=== PATIENT | female | born 1985 | race Caucasian/White ===

== ENCOUNTER 2017-01-08 15:03 | Emergency (ER) | payer OTHER ==
--- OUTSIDE RECORDS SUMMARY | 2017-01-08 15:37 | XMS REPORT | Continuity of Care Document ---
:1985 Author Organization [facility] ([facility]) Address [address] [place] [address] Phone [phone] Care Team Providers Name Role Phone Elsa Paul Primary Care Provider [phone] Source Comments This disclosure is being made pursuant to the Care Everywhere program, applicable federal and state laws, and may not contain all informaitonavailable regarding this patient.[facility] ([facility]) Active Allergies and Adverse Reactions Allergen Noted Date Severity Reactions Comments Erythromycin 10/29/2012 Urticaria (Hives) Penicillins 10/29/2012 Urticaria (Hives) Current Medications Prescription Sig. Disp. Refills Start Date End Date Status albuterol 90 Use 2 Puffs by 1 Inhaler 0 08/01/2014 Active mcg/Actuation inhalation every 6 inhaler hours as needed. Indications: BRONCHOSPASM PREVENTION pantoprazole 40 mg Take 1 tablet (40 60 tablet 1 08/03/2015 Active EC tablet mg total) by mouth 2 times daily DULoxetine 60 mg XR Take 1 capsule (60 30 capsule 2 08/31/2015 Active capsule mg total) by mouth daily traMADol 50 mg Take 1 tablet (50 40 tablet 0 05/03/2016 Active tablet mg total) by mouth 4 times daily as needed. Active Problems Problem Noted Date Chronic pain 10/03/2015 Vitamin D deficiency 10/03/2015 Tobacco abuse 10/03/2015 Tension headache 08/14/2015 Anxiety 08/14/2015 Abdominal pain, epigastric 04/28/2015 Chest pain, unspecified 04/28/2015 Chest pain, rule out acute myocardial infarction 04/28/2015 Unspecified constipation 04/25/2015 Abdominal pain, left upper quadrant 04/25/2015 Nausea alone 04/25/2015 High body mass index 08/01/2014 Bronchitis 08/01/2014 Productive cough 08/01/2014 Well woman exam with routine gynecological exam 06/10/2013 Laceration of thumb 10/31/2012 Elevated LFTs 10/29/2012 Obesity 10/29/2012 Immunizations Name Dates Previously Given Next Due Tdap 10/31/2012 Social History Tobacco Use Types Packs/Day Years Used Date Current Every Day Smoker Cigarettes 0.5 8 Smokeless Tobacco: Never Used Tobacco Cessation:Ready to Quit: Yes; Counseling Given: No Comments: Alcohol Use Drinks/Week oz/Week Comments Yes 2 Cans of beer 1.2 rarely Last Filed Vital Signs Vital Sign Reading Time Taken Blood Pressure 126/86 05/03/2016 2:45 PM CDT Pulse 104 05/03/2016 2:45 PM CDT Temperature 37.6 C (99.7 F) 05/03/2016 2:45 PM CDT Respiratory Rate 18 05/03/2016 2:45 PM CDT Height 1.676 m (5' 6") 04/28/2015 12:50 PM CDT Weight 107.593 kg (237 lb 3.2 oz) 05/03/2016 2:45 PM CDT Body Mass Index 38.3 05/03/2016 2:45 PM CDT Oxygen Saturation 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
[2017-01-08] MEDS ORDERED: KETOROLAC TROMETHAMINE 60 MG/2 ML VIAL IM ONE ×2 (15:42)
[2017-01-08 15:44] LABS: Urine Bilirubin Negative (NEGATIVE); Urine Blood Negative /ul (NEGATIVE); Urine Ketone Negative (NEGATIVE); Urine Nitrite Negative (NEGATIVE); Urine Protein Negative (NEGATIVE); Urine Specific Gravity 1.015 SP.GR. (1.005-1.010); Urine Urobilinogen Normal (NORMAL)
--- NOTE | 2017-01-08 15:47 | ERNOTE ---
Back Pain ER HPI Date of Service: 01/08/17 Presenting Symptoms: injury/pain to back Time Seen by Provider: 01/08/17 15:32 Source: patient, RN notes reviewed Exam Limitations: no limitations Immunizations: IMMUNIZATION HX Immunizations Up to Date Yes History of Influenza Vaccine No Hx Pneumococcal Vaccination No Allergies/Adverse Reactions: Allergies erythromycin base Allergy (Verified 01/08/17 15:30) Penicillins Allergy (Verified 01/08/17 15:30) Home Medications: HOME MEDICATIONS Albuterol Sulfate [Proair Respiclick] 2 puff IH Q4H PRN 05/05/16 [Last Taken Unknown] Cyclobenzaprine HCl [Flexeril] 10 mg PO TID PRN #30 tab 01/08/17 [Last Taken Unknown] Ibuprofen [Motrin] 600 mg PO Q6H PRN #40 tab 01/08/17 [Last Taken Unknown] Narrative: 31 y/o female to ED for right flank pain that began approximately a month ago, but has become severe for 2 days. She has a history of pyelonephritis and is concerned that she may have "kidney infection." She denies any urinary symptoms. She also reports nausea. She has not taken anything for pain today. Timing: Reports: getting worse Quality/Severity: Reports: severe Location of pain: Reports: mid back, radiating to rt thigh/leg Activities at Onset: Reports: none Recent Injury?: Reports: no Modifying Factors - (Improves): Reports: other - rest Modifying Factors - (Worsens): Reports: other - activity Associated Symptoms: Reports: difficulty walking. Denies: fever/chills, sweating, constipation/incontinence, problems urinating, numbess/weakness in legs Prior Treament: Denies: recently seen Review of Systems - Review of Systems Constitutional: Absent: fever, chills EYE: Present: no symptoms reported ENT: Present: no symptoms reported Respiratory: Absent: shortness of breath, cough Cardiology: Absent: chest pain, syncope Gastrointestinal/Abdominal: Present: nausea. Absent: vomiting, diarrhea, constipation Genitourinary: Absent: frequency, dysuria, hematuria Musculoskeletal: Present: back pain. Absent: joint pain Skin: Absent: rash, lesions, lumps Neurological: Absent: dizziness/light-headedness, weakness, numbness, tingling Endocrine: Present: no symptoms reported Hematologic/Lymphatic: Present: no symptoms reported Psych: Present: no symptoms reported - Patient's Past Medical History Patient History - Medical: Depression Patient History - Cardiac/Respiratory: No pertinent hx Patient History - Cancer: No Hx of Cancer Patient History - Surgical Procedures: Cholecystectomy, Ear Tubes, Tubal Ligation, T & A Patient History - Other: None LMP (Calendar): 01/03/17 - Family History Father Family History - Medical: Diabetes Type 2 Family History - Cardiac/Respiratory: Hypertension Mother Family History - Medical: No pertinent hx Family History - Cardiac/Respiratory: No pertinent hx - Social History Living Situations: significant other Abuse History: No History of abuse Psych History: Hx of Depression Does anyone smoke in the home?: Yes Smoking Status: Current every day smoker Cigarettes Packs Per Day: 0.5 Have you smoked in the past 12 months: Yes Alcohol Use: none Drug Use: none - Immunizations Immunizations Up to Date: Yes Hx Pneumococcal Vaccination: No History of Influenza Vaccine: No Physical Exam - Physical Exam General Appearance: Present: wd/wn, alert, mild distress, obese Eye Exam: Normal inspection: bilateral Neck: Present: normal inspection, nontender, supple Respiratory: Present: no respiratory distress, normal breath sounds, no accessory muscle use, lungs clear Cardiovascular/Chest: Present: regular rate, rhythm, no murmur, normal peripheral pulses Gastrointestinal/Abdominal: Present: normal bowel sounds, soft, tenderness - suprapubic, RLQ, distended - obese Back Exam: Present: no vertebral tenderness, CVA tenderness (R), decreased range of motion. Absent: CVA tenderness (L) Extremity Exam: Present: normal inspection, no edema, normal range of motion Neurological Exam: Present: alert, oriented, normal mood/affect, no motor/ sensory deficits Skin Exam: Present: normal color, warm/dry ED Progress - Results and Orders Patient's Lab Results:: I have reviewed the patient's lab results. - Vital Signs Patient's Vital Signs:: I have reviewed the patient's vital signs. Vital Signs: Vital Signs 01/08/17 15:27 Pulse Rate 92 Respiratory 14 Rate Blood Pressure 150/93 O2 Sat by Pulse 97 Oximetry - X-Ray X-Ray #1 X-Ray: lumbosacral Interpretation: Reviewed by me X-ray Comments: TECHNIQUE: AP, lateral, coned-down lateral, bilateral oblique views of the lumbar spine were obtained. 5 images obtained. COMPARISON: None available. FINDINGS: Lumbar Complete W/ Obliques *: Five nonrib-bearing lumbar vertebral bodies are noted. Pedicles are intact and symmetric. Interpediculate distances are normal. Lateral view demonstrates no compression deformity. Normal alignment is seen. Mild L4-L5 disc space narrowing suggested. Mild to moderate L5-S1 disc space narrowing suggested. Mild facet joint degenerative changes of L4-L5 and L5-S1 levels noted. Oblique images demonstrate no definite signs of spondylolysis. IMPRESSION: 1. No acute osseous finding. 2. L4-L5 and L5-S1 degenerative disc disease, with facet joint degenerative arthropathy suggested. Electronically signed by Jeremias Colin M.D.. - Progress/Reassessment Chief Complaint: Back Pain Progress:: Unchanged Plan - Plan Plan: No change in pain with Toradol. UA does not indicate infection or renal calculi. No remarkable xray findings corresponding with the area in which the patient is having pain, however there is a fair amount of retained stool in the right side of the abdomen visible on the lumbar film. Discussed further evaluation with labs and abdominal films, but patient is agreeable to trying a laxative to see if this will improve the pain. To f/u if pain persists despite having results with Mag Citrate. Departure Clinical Impression: Right flank pain - Departure Disposition: Home Follow Up Needed Condition: Stable Instructions: Flank Pain, [id number], Form - Excuse from Work, School, or Physical Activity Additional Instructions: Take entire bottle of magnesium citrate when you get home Return if symptoms persist Prescriptions: Cyclobenzaprine HCl [Flexeril] 10 mg PO TID PRN #30 tab PRN Reason: MUSCLE SPASMS Ibuprofen [Motrin] 600 mg PO Q6H PRN #40 tab PRN Reason: Pain
[2017-01-08 15:57] LABS: Urine Appearance Slightly Cloudy; Urine Bacteria TRACE; Urine Color Yellow; Urine Mucus Few - 1+; Urine RBC None Seen /hpf (0-5); Urine WBC None Seen /hpf (0-5)
[2017-01-08 16:27] VITALS: BP 147/90
[2017-01-08] MEDS ORDERED: MAGNESIUM CITRATE 300 ML BTL PO ONE (16:55)
[2017-01-08] MEDS ORDERED: MAGNESIUM CITRATE 300 ML BTL ONE (16:57)
== END 2017-01-08 17:02 | disposition home or self-care (01) ==
LOC: ER 15:03
DX: R10.9 Unspecified abdominal pain (principal); F17.210 Nicotine dependence, cigarettes, uncomplicated

== ENCOUNTER 2017-02-19 10:57 | Emergency (ER) | payer OTHER ==
--- OUTSIDE RECORDS SUMMARY | 2017-02-19 11:32 | XMS REPORT | Continuity of Care Document ---
:1985 Author Organization [facility] ([facility]) Address [address] [place] [address] Phone [phone] Care Team Providers Name Role Phone Elsa Paul Primary Care Provider [phone] Source Comments This disclosure is being made pursuant to the Care Everywhere program, applicable federal and state laws, and may not contain all informaitonavailable regarding this patient.[facility] ([facility]) Active Allergies and Adverse Reactions Allergen [...] CDT Oxygen Saturation 99% 10/02/2015 8:39 AM CARE ADVOCATE Plan of Care Health Maintenance Due Date [...]
[2017-02-19 11:37] LABS: Hematocrit 38.2 % (37.0-47.0); Hemoglobin 12.7 gm/dL (12.5-16.0); Mean Cell Volume 82.9 fl (78-100); Mean Corpuscular Hemoglobin 27.5 pg (27-31); Mean Corpuscular Hgb Conc 33.2 g/dl (32-36); Mean Platelet Volume 10.1 fl (6.0-9.5); Neutrophil # 4.9 K/mm3 (1.3-6.0); Neutrophil % 62.8 % (42-75.0); Platelet Count 248 K/mm3 (150-450); Red Blood Count 4.61 M/mm3 (4.2-5.4); Red Cell Distribution Width 13.2 % (11.5-14.0); White Blood Count 7.8 K/mm3 (4.0-10.5)
--- NOTE | 2017-02-19 11:49 | ERNOTE ---
Medical Problem HPI - General Chief Complaint: Drug Overdose Time Seen by Provider: 02/19/17 11:23 Source: patient, family Exam Limitations: clinical condition - Immun/Allergies/Home Medications Immunizations: IMMUNIZATION HX Immunizations Up to Date Yes History of Influenza Vaccine No Hx Pneumococcal Vaccination No Allergies/Adverse Reactions: Allergies erythromycin base Allergy (Verified 01/08/17 15:30) Penicillins Allergy (Verified 01/08/17 15:30) Home Medications: HOME MEDICATIONS NK [No Home Medication] 02/19/17 [Last Taken Unknown] - History of Present History Narrative: Patient has been under considerable stress in her home life with the father of her children putting enormous pressures on her telling her that she needs to kill herself. He has already suffers from depression and apparently these life stressors are getting to be too much for her and today she decided to take some extra pills any attempt to end her life and she said "to stop the pain". Timing: constant Severity: moderate Review of Systems - Review of Systems Constitutional: Present: See HPI, malaise EYE: Present: no symptoms reported ENT: Present: no symptoms reported Respiratory: Present: no symptoms reported Cardiology: Present: no symptoms reported Gastrointestinal/Abdominal: Present: no symptoms reported Genitourinary: Present: no symptoms reported Musculoskeletal: Present: no symptoms reported Skin: Present: no symptoms reported Neurological: Present: depressed, emotional problems Endocrine: Present: no symptoms reported Hematologic/Lymphatic: Present: no symptoms reported Psych: Present: depressed, emotional problems - Patient's Past Medical History Patient History - Medical: Depression Patient History - Cardiac/Respiratory: No pertinent hx Patient History - Cancer: No Hx of Cancer Patient History - Surgical Procedures: Cholecystectomy, Ear Tubes, Tubal Ligation, T & A Patient History - Other: None LMP (Calendar): 01/03/17 - Family History Father Family History - Medical: Diabetes Type 2 Family History - Cardiac/Respiratory: Hypertension Mother Family History - Medical: No pertinent hx Family History - Cardiac/Respiratory: No pertinent hx - Social History Living Situations: significant other Abuse History: No History of abuse Psych History: Hx of Depression Does anyone smoke in the home?: Yes Smoking Status: Current every day smoker Have you smoked in the past 12 months: Yes Alcohol Use: none Drug Use: none - Immunizations Immunizations Up to Date: Yes Hx Pneumococcal Vaccination: No History of Influenza Vaccine: No Physical Exam - Physical Exam General Appearance: Present: wd/wn, alert, moderate distress, other - sleepy, but arousable Eye Exam: Normal inspection: bilateral, PERRL: bilateral Ears, Nose, Throat: Present: normal ENT inspection, H, normal pharynx Neck: Present: normal inspection, nontender Respiratory: Present: no respiratory distress, normal breath sounds, no accessory muscle use, chest nontender, lungs clear Cardiovascular/Chest: Present: regular rate, rhythm, no murmur, normal peripheral pulses Gastrointestinal/Abdominal: Present: normal bowel sounds, nontender, nondistended, soft, no organomegaly Rectal Exam: Present: deferred Back Exam: Present: normal inspection, normal range of motion Extremity Exam: Present: normal inspection, non-tender, no edema, normal range of motion Neurological Exam: Present: alert, oriented, normal mood/affect Skin Exam: Present: normal color, warm/dry Lymphatic Exam: Present: no adenopathy ED Progress - Results and Orders Patient's Lab Results:: I have reviewed the patient's lab results. - Vital Signs Patient's Vital Signs:: I have reviewed the patient's vital signs. Vital Signs: Vital Signs 02/19/17 02/19/17 11:02 11:22 Temperature 36.3 C L Pulse Rate 115 H 96 Respiratory 14 16 Rate Blood Pressure 139/96 116/70 O2 Sat by Pulse 100 98 Oximetry - Progress/Reassessment Chief Complaint: Drug Overdose Progress:: Improved Progress Note-Subjective: 02/19/17 15:56 Pt adamently denies to both me and to Kristi Maravilla that she is suicidal. She wants to go home and will F/U with her FP and Kristi Maravilla as needed. Plan - Plan Plan: Counseling was offered to the patient and we discussed the amphetamine usage as being a problem in regards to her mental health. She appears to understand, although I suspect, as does Kristi Maravilla, that she is a borderline personality disorder patient. Departure - Departure Clinical Impression: Borderline personality disorder, Acute stress reaction Disposition: Home self-care Condition: Good Instructions: Borderline Personality Disorder
[2017-02-19 11:50] LABS: ALT 79 U/L (19-67); AST 34 U/L (0-48); Albumin * 3.5 gm/dl (3.4-5.0); Alkaline Phosphatase * 113 U/L (50-170); Anion Gap 14.2 mmol/L (6.8-13.8); BUN/Creatinine Ratio 11.8 (9.0-21.6); Bilirubin, Total 0.3 mg/dL (0.0-1.1); Blood Urea Nitrogen 8 mg/dL (3-23); Ca. Corrected For Albumin 8.5 mg/dL (8.4-10.2); Calcium * 8.4 mg/dL (7.9-10.9); Chloride 107 mmol/L (97-106); Glucose * 139 mg/dL (70-110); Potassium 3.2 mmol/L (3.4-4.6); Salicylate 4.2 mg/dL (2.8-20.0); Sodium 142 mmol/L (132-142); Total Protein 7.4 gm/dL (6.2-8.2)
[2017-02-19 12:02] LABS: Urine Bilirubin Negative (NEGATIVE); Urine Blood Negative /ul (NEGATIVE); Urine Ketone Negative (NEGATIVE); Urine Nitrite Negative (NEGATIVE); Urine Protein Negative (NEGATIVE); Urine Urobilinogen Normal (NORMAL)
[2017-02-19 12:11] LABS: Cocaine Ur Negative (NEGATIVE); Urine Barbiturate Negative (NEGATIVE); Urine Benzodiazepines Negative (NEGATIVE); Urine Opiates Negative (NEGATIVE); Urine PCP Negative (NEGATIVE); Urine THC Negative (NEGATIVE)
[2017-02-19 12:20] LABS: Urine Appearance Clear; Urine Bacteria 1+; Urine Color Yellow; Urine RBC 0-5 /hpf (0-5); Urine WBC None Seen /hpf (0-5)
[2017-02-19 15:46] VITALS: BP 118/76
== END 2017-02-19 16:13 | disposition home or self-care (01) ==
LOC: ER 10:57
DX: F60.3 Borderline personality disorder (principal); F43.0 Acute stress reaction; F17.210 Nicotine dependence, cigarettes, uncomplicated
CPT/HCPCS: 36415; 80053; 80307; 81001; 85025; 87086; 93005; 94760; 99283; G0480; G0481

== ENCOUNTER 2017-11-05 20:18 | Emergency (ER) | payer OTHER ==
[2017-11-05] MEDS ORDERED: KETOROLAC TROMETHAMINE 60 MG/2 ML VIAL IM ONE ×2 (20:28→20:30)
[2017-11-05 20:36] LABS: Urine Bilirubin Negative (NEGATIVE); Urine Blood Negative /ul (NEGATIVE); Urine Ketone Negative (NEGATIVE); Urine Nitrite Negative (NEGATIVE); Urine Protein Negative (NEGATIVE); Urine Specific Gravity <=1.005 SP.GR. (1.005-1.010); Urine Urobilinogen Normal (NORMAL)
--- NOTE | 2017-11-05 20:43 | ERNOTE ---
Back Pain ER HPI Date of Service: 11/05/17 Presenting Symptoms: hx chronic back pain Time Seen by Provider: 11/05/17 20:19 Source: patient Exam Limitations: no limitations Immunizations: IMMUNIZATION HX Immunizations Up to Date Yes History of Influenza Vaccine Yes Hx Pneumococcal Vaccination Yes Allergies/Adverse Reactions: Allergies erythromycin base Allergy (Verified 11/05/17 20:26) Penicillins Allergy (Verified 11/05/17 20:26) Home Medications: HOME MEDICATIONS Cyclobenzaprine HCl [Flexeril] 10 mg PO TID PRN #30 tab 11/05/17 [Last Taken Unknown] Naproxen [Naprosyn] 500 mg PO BID PRN #60 tab 11/05/17 [Last Taken Unknown] Polyethylene Glycol 3350 [Miralax] 17 gm PO DAILY #1 bottle 11/05/17 [Last Taken Unknown] Narrative: Pt. comes in with c/o low back pain for a week. Pt. denies nay injury or precipitating factors and states taht she has had problems with her back as well as her kidneys in the past. Pt. states that she has not urinated in three days. Pt. denies any NVD, fever, SOB, CP, illicit drug use, smoking, or drinking. Pt. denies any alleviating or aggravating factors, despite taking Tylenol for pain. Timing: Reports: getting worse Quality/Severity: Reports: severe, sharpness Location of pain: Reports: lower back Activities at Onset: Reports: none Recent Injury?: Reports: no Possible Precipitating Factor: Reports: none Modifying Factors - (Improves): Reports: nothing Modifying Factors - (Worsens): Reports: supine position, upright position, movement to right, movement to left, movement flexion, cough/deep breaths Associated Symptoms: Reports: problems urinating Prior Treament: Reports: similar symptoms before. Denies: recently seen, treated by physician, recently hospitalized, currently on antibiotics Review of Systems - Review of Systems Constitutional: Present: no symptoms reported. Absent: fever, chills, weakness , fatigue, malaise EYE: Present: no symptoms reported ENT: Present: no symptoms reported Respiratory: Present: no symptoms reported. Absent: shortness of breath, cough , wheezing Cardiology: Present: no symptoms reported. Absent: chest pain, palpitations, edema Gastrointestinal/Abdominal: Present: no symptoms reported Genitourinary: Present: decreased urinary output Musculoskeletal: Present: back pain. Absent: neck pain, joint pain Skin: Present: no symptoms reported. Absent: rash, change in color Neurological: Present: no symptoms reported. Absent: headache, dizziness/light- headedness, weakness, numbness, tingling All Other Systems: All systems neg except as marked - Patient's Past Medical History Patient History - Medical: Depression, Fibromyalgia Patient History - Cardiac/Respiratory: No pertinent hx Patient History - Cancer: No Hx of Cancer Patient History - Surgical Procedures: Cholecystectomy, Ear Tubes, Tubal Ligation, T & A Patient History - Other: None LMP (females 10-50): tubal ligation - Family History Father Family History - Medical: Diabetes Type 2 Family History - Cardiac/Respiratory: Hypertension Mother Family History - Medical: No pertinent hx Family History - Cardiac/Respiratory: No pertinent hx - Social History Living Situations: home Abuse History: No History of abuse Psych History: Hx of Depression Smoking Status: Never smoker Alcohol Use: none Drug Use: none - Immunizations Immunizations Up to Date: Yes Hx Pneumococcal Vaccination: Yes History of Influenza Vaccine: Yes Physical Exam - Physical Exam General Appearance: Present: wd/wn, alert, moderate distress Head Exam: Present: normal inspection, no evidence of injury, no tenderness w palpation Eye Exam: Abnormal EOM: bilateral - will track when asked to focus but does not when at rest, Abnormal pupil: bilateral - 2mm Ears, Nose, Throat: Present: normal ENT inspection, normal pharynx Neck: Present: normal inspection, nontender, supple, full range of motion. Absent: lymphadenopathy (R), lymphadenopathy (L) Respiratory: Present: no respiratory distress, normal breath sounds, no accessory muscle use, chest nontender, lungs clear Cardiovascular/Chest: Present: regular rate, rhythm, no murmur, normal peripheral pulses Gastrointestinal/Abdominal: Present: normal bowel sounds, nontender, nondistended, soft, no organomegaly Back Exam: Present: CVA tenderness (R), CVA tenderness (L), vertebral tenderness - L1-L3 Extremity Exam: Present: normal inspection, non-tender, normal range of motion, no edema Neurological Exam: Present: alert, oriented, no motor/sensory deficits, other - agitated ED Progress - Date and Time Seen: Date and Time: 11/05/17 20:38 Pt. with abnormal eye movements and pupils are 2mm in a dim room. Feel that pt. could be using a substance although she denies this. - Vital Signs Patient's Vital Signs:: I have reviewed the patient's vital signs. Vital Signs: Vital Signs 11/05/17 20:19 Temperature 36.9 C Pulse Rate 71 Respiratory 16 Rate Blood Pressure 144/110 O2 Sat by Pulse 99 Oximetry - X-Ray X-Ray #1 X-Ray: lumbosacral Interpretation: Interp. by me X-ray Comments: L5 S1 disc degeneration, no spondylolithesis, degenerative changes of ischial spines noted. Moderate amount of stool retention noted on back xray. - Progress/Reassessment Chief Complaint: Back Pain Departure Clinical Impression: Back pain Qualifiers: Back pain location: low back pain Chronicity: chronic Back pain laterality: bilateral Sciatica presence: without sciatica Qualified Code(s): M54.5 - Low back pain; G89.29 - Other chronic pain; G89.29 - Other chronic pain Constipation Qualifiers: Constipation type: unspecified constipation type Qualified Code(s): K59.00 - Constipation, unspecified - Departure Disposition: Home self-care Condition: Good Instructions: Constipation, Adult, [id number], Back Pain, Adult Additional Instructions: Please follow up with your primary provider in 2-3 days. Please take bottle of magnesium citrate when you get home and start miralax 1 capful daily. Prescriptions: Cyclobenzaprine HCl [Flexeril] 10 mg PO TID PRN #30 tab PRN Reason: MUSCLE SPASMS Naproxen [Naprosyn] 500 mg PO BID PRN #60 tab PRN Reason: Pain Polyethylene Glycol 3350 [Miralax] 17 gm PO DAILY #1 bottle
[2017-11-05 20:45] LABS: Urine Appearance Clear; Urine Color Yellow; Urine RBC None Seen /hpf (0-5); Urine WBC None Seen /hpf (0-5)
[2017-11-05 20:46] LABS: Urine Amorphous Sediment Few - 1+ (NONE-FEW); Urine Bacteria TRACE
[2017-11-05 20:55] LABS: Cocaine Ur Negative (NEGATIVE); Urine Barbiturate Negative (NEGATIVE); Urine Benzodiazepines Negative (NEGATIVE); Urine Opiates Negative (NEGATIVE); Urine PCP Negative (NEGATIVE); Urine THC Negative (NEGATIVE)
[2017-11-05 21:17] LABS: Hematocrit 38.4 % (37.0-47.0); Mean Cell Volume 82.6 fl (78-100); Mean Corpuscular Hgb Conc 33.9 g/dl (32-36); Mean Platelet Volume 10.4 fl (6.0-9.5); Neutrophil # 5.1 K/mm3 (1.3-6.0); Neutrophil % 45.5 % (42-75.0); Platelet Count 252 K/mm3 (150-450); Red Blood Count 4.65 M/mm3 (4.2-5.4); Red Cell Distribution Width 13.1 % (11.5-14.0); White Blood Count 11.1 K/mm3 (4.0-10.5)
[2017-11-05 21:26] LABS: Albumin * 3.2 gm/dl (3.4-5.0); BUN/Creatinine Ratio 12.1 (9.0-21.6); Bilirubin, Total 0.2 mg/dL (0.0-1.1); Ca. Corrected For Albumin 8.5 mg/dL (8.4-10.2); Calcium * 8.2 mg/dL (7.9-10.9); Carbon Dioxide 25.3 mmol/L (24-32.6); Potassium 3.3 mmol/L (3.4-4.6); Total Protein 6.8 gm/dL (6.2-8.2)
[2017-11-05] MEDS ORDERED: MAGNESIUM CITRATE 300 ML BTL PO ONE (21:41)
[2017-11-05] MEDS ORDERED: MAGNESIUM CITRATE 300 ML BTL ONE (21:44)
[2017-11-05 21:53] VITALS: BP 124/81
== END 2017-11-05 21:52 | disposition home or self-care (01) ==
LOC: ER 20:18
DX: M54.5 Low back pain (principal); G89.29 Other chronic pain; K59.00 Constipation, unspecified
CPT/HCPCS: 36415; 72110; 80053; 80307; 81001; 85025; 96372; 99284; G0479